=== PATIENT | female | born 1975 | race Two or more races ===

== ENCOUNTER 2020-10-20 20:39 | Inpatient (IN) | payer OTHER ==
[~2020-10-20] VITALS: Ht 157.5 cm; Wt 93.8 kg
[2020-10-20 21:31] LABS: BASOPHILS % (AUTO) 1 % (0-1); EOSINOPHILS % (AUTO) 5 % (1-7); LYMPHOCYTES % (AUTO) 25 % (22-44); MEAN CORPUSCULAR HEMOGLOBIN 16.7 pg (27.0-34.8); MEAN CORPUSCULAR HGB CONC 28.4 g/dL (32.4-35.8); MEAN PLATELET VOLUME 8.7 fL (7.4-10.4); MONOCYTES % (AUTO) 6 % (2-9); NEUTROPHILS % (AUTO) 64 % (42-75); PLATELET COUNT 353 x10^3/uL (130-400); RED CELL DISTRIBUTION WIDTH 19.4 % (9.6-15.2)
[2020-10-20 21:34] LABS: ALBUMIN 3.6 g/dL (3.4-5.0); ANION GAP 4 mmol/L (5-15); CALCIUM 8.7 mg/dL (8.5-10.1); CHLORIDE 108 mmol/L (98-107); CREATININE 0.73 mg/dL (0.55-1.02)
[2020-10-20 21:58] LABS: MD MORPH REVIEW ONLY
[2020-10-20 22:02] LABS: ANISOCYTOSIS 2+; MICROCYTOSIS 2+
[2020-10-20 22:03] LABS: HYPOCHROMIA 2+; OVALOCYTES 1+; POLYCHROMASIA 1+
[2020-10-20 22:04] LABS: TEAR DROPS 1+
[2020-10-20 22:05] LABS: <PLATELET ESTIMATE> ADEQUATE; <PLT MORPHOLOGY> NORMAL PLT MORPH
--- NOTE | 2020-10-20 22:43 | NUR ---
buncher hand: pt from lobby to room 24
--- NOTE | 2020-10-20 23:12 | NUR ---
[facility]. pt reports fatigue and feeling lethargic. denies dizziness at this time. reports significant amounts of blood clots stating last night she had large black clots. pt unable to get into [facility] until november, pcp checked labs and sent her here d/t low h/h. pt placed on spo2/bp/ecg monitoring. walked to room and bathroom with a smooth and steady gait. pt changed into gown, provided warm blankets for comfort, vss, bed in lowest, rails engaged, call light on lap, wctm. scott blanca at for eval and poc. pt updated on poc, to be admitted.
[2020-10-20] MEDS ORDERED: IRON DEXTRAN COMPLEX 25 MG in SODIUM CHLORIDE 0.9% 50 ML IV ONE (23:45)
[2020-10-20] MEDS ORDERED: NORGESTIMATE-ETHINYL ESTRADIOL TABLET PO ONE (23:45)
[2020-10-21] VITALS (14 sets, daily range): BP systolic 90–136; BP diastolic 49–87
[2020-10-21] MEDS ORDERED: SODIUM CHLORIDE FLUSH 10ML SYR IVF PRN (00:30)
[2020-10-21] MEDS ORDERED: DOCUSATE 100 MG CAPSULE PO PRN (01:00)
[2020-10-21] MEDS ORDERED: MELATONIN 5 MG TABLET PO PRN (01:00)
[2020-10-21] MEDS ORDERED: ACETAMINOPHEN 325 MG TABLET PO PRN (01:00)
[2020-10-21] MEDS ORDERED: LIDODERM 5% PATCH TD PRN (01:00)
[2020-10-21] MEDS ORDERED: ONDANSETRON 2MG/ML, 2ML IVPush PRN (01:00)
--- NOTE | 2020-10-21 01:19 | NUR ---
PT RESTING ON GURICH, NAD, APPEARS COMFORTABLE, DENIES ADDITIONAL NEEDS AT THIS TIME. UPDATED ON POC. WCTM.
--- NOTE | 2020-10-21 01:25 | NUR ---
REPORT CALLED TO CHRISTINE QUIJANO. PT CARE TO BE TRANSFERRED UPON ARRIVAL TO THE FLOOR. JILL.
[2020-10-21 07:49] LABS: BASOPHILS % (AUTO) 1 % (0-1); EOSINOPHILS % (AUTO) 5 % (1-7); LYMPHOCYTES % (AUTO) 22 % (22-44); MEAN CORPUSCULAR HEMOGLOBIN 19.4 pg (27.0-34.8); MEAN PLATELET VOLUME 8.5 fL (7.4-10.4); MONOCYTES % (AUTO) 7 % (2-9); NEUTROPHILS % (AUTO) 66 % (42-75); PLATELET COUNT 290 x10^3/uL (130-400); RED BLOOD COUNT 3.72 x10^6/uL (3.82-5.3); RED CELL DISTRIBUTION WIDTH 26.2 % (9.6-15.2)
[2020-10-21 07:54] LABS: ANION GAP 7 mmol/L (5-15); CALCIUM 8.4 mg/dL (8.5-10.1); CHLORIDE 109 mmol/L (98-107); CREATININE 0.64 mg/dL (0.55-1.02)
[2020-10-21 08:13] LABS: MEAN CORPUSCULAR HGB CONC 29.9 g/dL (32.4-35.8)
[2020-10-21 08:15] LABS: MD MORPH REVIEW ONLY
[2020-10-21 08:16] LABS: <PLATELET ESTIMATE> ADEQUATE; <PLT MORPHOLOGY> NORMAL PLT MORPH
[2020-10-21 08:17] LABS: ANISOCYTOSIS 2+; HYPOCHROMIA 2+; MICROCYTOSIS 2+; OVALOCYTES 1+
[2020-10-21] MEDS ORDERED: IRON DEXTRAN COMPLEX 1,650 MG in SODIUM CHLORIDE 0.9% 250 ML IV ONE (08:45)
[2020-10-21] MEDS ORDERED: EPINEPHRINE 1 MG/ML, 1ML IM PRN (09:00)
[2020-10-21] MEDS ORDERED: NORE-88 PO (14:51)
[2020-10-21] MEDS ORDERED: FERR325T18 PO (14:51)
== END 2020-10-21 17:32 | disposition home or self-care (01) | DRG 760 ==
LOC: SUATTDRO 10-21 00:01 → ED 10-21 00:14 → EDIP 10-21 00:20 → 3N 10-21 01:34
PROVIDERS: ADMIT Hospitalist; ATTEND Internal Medicine
PROC: 30233N1 Transfusion of Nonautologous Red Blood Cells into Peripheral Vein, Percutaneous Approach (ICD-10-PCS; principal; 2020-10-20)
DX: N93.8 Other specified abnormal uterine and vaginal bleeding (principal); D62 Acute posthemorrhagic anemia; D25.9 Leiomyoma of uterus, unspecified; N92.1 Excessive and frequent menstruation with irregular cycle; Z88.0 Allergy status to penicillin
CPT/HCPCS: 36415; 36430; 76830; 80048; 82040; 84703; 85014; 85018; 85025; 86850; 86900; 86923; 99285; G0378; J1750; J7050; P9016

== ENCOUNTER → 2021-01-04 | Outpatient (CLI) | payer OTHER ==
[~2021-01-04] MED LIST: FERR-46 PO; FERR325T18 PO; NORE-88 PO; NORE1TAB85 PO
[2021-01-04 09:47] LABS: BASOPHILS % (AUTO) 1 % (0-1); EOSINOPHILS % (AUTO) 3 % (1-7); LYMPHOCYTES % (AUTO) 24 % (22-44); MEAN CORPUSCULAR HEMOGLOBIN 27.5 pg (27.0-34.8); MEAN PLATELET VOLUME 8.1 fL (7.4-10.4); MONOCYTES % (AUTO) 5 % (2-9); NEUTROPHILS % (AUTO) 67 % (42-75); PLATELET COUNT 402 x10^3/uL (130-400); RED BLOOD COUNT 4.72 x10^6/uL (3.82-5.3); RED CELL DISTRIBUTION WIDTH 15.2 % (9.6-15.2)
== END | disposition home or self-care (01) ==
LOC: STAR 08:53
PROVIDERS: ATTEND Obstetrics & Gynecology
DX: Z01.812 Encounter for preprocedural laboratory examination (principal); Z20.822 Contact with and (suspected) exposure to COVID-19; D21.9 Benign neoplasm of connective and other soft tissue, unspecified; D50.0 Iron deficiency anemia secondary to blood loss (chronic)
CPT/HCPCS: 36415; 84703; 85025; U0003; U0005

== ENCOUNTER → 2021-01-10 | Day surgery (SDC) | payer OTHER ==
[~2021-01-10] VITALS: Ht 157.5 cm; Wt 92.6 kg
[~2021-01-10] MED LIST changes: +ACETAMINOPHEN 325 MG TABLET PO PRN; +ACETAMINOPHEN 650 MG/20.3 ML UDC ONE; +BUPIVACAINE/PF 0.25% ONE; +CEFAZOLIN 1,000 MG ONE; +CHLORHEXIDINE 15 ML UDC ONE; +CHLORHEXIDINE 15 ML UDC PO ONE; +DEXAMETHASONE 4 MG/ML, 1ML ONE; +EPHEDRINE 50 MG/ML, 1ML IVPush PRN; +EPINEPHRINE 1 MG/ML, 1ML ONE; +FENTANYL PF 100 MCG/2ML IV PRN; +FENTANYL PF 250 MCG/5ML ONE; +FLUORESCEIN SODIUM 500 MG/5 ML ONE; +FUROSEMIDE 20 MG/2 ML ONE; +GLYCOPYRROLATE 0.2MG/1ML, 5ML ONE; +HYDROmorphone 1 MG/ML, 1ML INJ IVPush PRN; +HYDROmorphone 1 MG/ML, 1ML INJ ONE; +IBUPROFEN 600 MG TABLET PO SCH; +KETOROLAC 30 MG/1 ML ONE; +LABETALOL 5MG/ML, 20ML IV PRN; +LACTATED RINGERS 1,000 ML IV SCH; +LIDOCAINE-MPF 2% ,5ML ONE; +MEPERIDINE/PF 25MG/0.5ML IVPush PRN; +MIDAZOLAM 1 MG/ML, 2ML ONE; +NEOSTIGMINE 1 MG/ML, 10ML ONE; +OMNIPAQUE 350 MG/ML, 50 ML BOTTLE ONE; +ONDANSETRON 2MG/ML, 2ML IVPush PRN; +ONDANSETRON 2MG/ML, 2ML ONE; +OXYcodone 5 MG/5 ML ORAL.SOL UDC ONE; +OXYcodone 5 MG/5 ML ORAL.SOL UDC PO PRN; +OXYcodone/APAP 5/325MG TABLET PO PRN; +PROMETHAZINE 25 MG/ML, 1ML IM ONE; +PROMETHAZINE 25 MG/ML, 1ML IVPush PRN; +PROPOFOL 10 MG/ML, 20ML ONE; +ROCURONIUM 10MG/ML,5ML ONE; +SODIUM CHLORIDE 0.9% PF 10ML ONE; +SUCCINYLCHOLINE 20 MG/ML, 10ML ONE; +hydrALAzine 20 MG/ML, 1ML IV PRN
[2021-01-10 11:11] VITALS: BP 138/88
[2021-01-10 11:34] LABS: HCG UR SG 1.021 (1.003-1.030)
[2021-01-10 19:11] LABS: MEAN CORPUSCULAR HGB CONC 32.2 g/dL (32.4-35.8); MEAN PLATELET VOLUME 8.1 fL (7.4-10.4); PLATELET COUNT 359 x10^3/uL (130-400); RED BLOOD COUNT 4.49 x10^6/uL (3.82-5.3); RED CELL DISTRIBUTION WIDTH 14.5 % (9.6-15.2)
[2021-01-10 19:44] LABS: LYMPH#(MANUAL) 1.27 x10^3/uL (1-3.4); LYMPHS% (MANUAL) 6 % (22-44); SEG#(MANUAL) 19.93 x10^3/uL (1.8-6.8); SEGS% (MANUAL) 94 % (42-75)
[2021-01-10 19:45] LABS: <PLATELET ESTIMATE> ADEQUATE; <PLT MORPHOLOGY> NORMAL PLT MORPH; ANISOCYTOSIS 1+; HYPOCHROMIA 1+; MICROCYTOSIS 1+
[2021-01-10 19:46] LABS: STOMATOCYTES 1+
== END | disposition home or self-care (01) ==
LOC: OUT 10:35
PROVIDERS: ATTEND Obstetrics & Gynecology
DX: D25.1 Intramural leiomyoma of uterus (principal); N88.8 Other specified noninflammatory disorders of cervix uteri; N92.0 Excessive and frequent menstruation with regular cycle; D50.0 Iron deficiency anemia secondary to blood loss (chronic); K21.9 Gastro-esophageal reflux disease without esophagitis; Z79.899 Other long term (current) drug therapy; Z88.0 Allergy status to penicillin; Z98.51 Tubal ligation status; Z82.49 Family history of ischemic heart disease and other diseases of the circulatory system
CPT/HCPCS: 36415; 58290; 81025; 85025; 86850; 86900; 88307; J0171; J0330; J0690; J1100; J1170; J1885; J1940; J2250; J2405; J2704; J2710; J3010; J7120; Q9967